=== PATIENT | male | born 1980 | race Caucasian/White ===

== ENCOUNTER 2017-01-13 12:35 | Emergency (ER) | payer OTHER ==
--- NOTE | 2017-01-13 12:46 | ED.PDOC ---
History of Present Illness - General Chief Complaint: General Stated Complaint: Slid out of chair at rehab facility, sent by EMS to be checked out Time Seen by Provider: 01/13/17 12:36 Source: patient, RN notes reviewed, Vital Signs reviewed, EMS notes reviewed, [facility] records Exam Limitations: clinical condition Additional Information: Patient has developmental delay and is on vent thus he is non-verbal. He does nod and shake his head in response to yes & no questions. - History of Present Illness Initial Comments: Per EMS - patient slid out of chair onto the floor at the [facility]. No obvious injuries. Sent here to be evaluated. Patient responds no to questions of pain or injury. Timing/Duration: momentarily Severity: mild Improving Factors: nothing Worsening Factors: nothing Associated Symptoms: denies symptoms Allergies/Adverse Reactions: Allergies NO KNOWN ALLERGY Allergy (Verified 01/13/17 12:48) Review of Systems - Review of Systems Constitutional: States: no symptoms reported EENTM: States: no symptoms reported Respiratory: States: no symptoms reported, other - On Vent - no recent change Cardiology: States: no symptoms reported Gastrointestinal/Abdominal: States: no symptoms reported Musculoskeletal: States: no symptoms reported Skin: States: no symptoms reported Neurological: States: see HPI Endocrine: States: no symptoms reported Family Medical History - Family History Grandparents Family History: Unknown Physical Exam - Physical Exam General Appearance: Comfortable, Frail, No apparent distress Neck: non-tender, supple Respiratory: chest non-tender, lungs clear, normal breath sounds, no respiratory distress, no accessory muscle use, other - Trach in place and on ventilator Cardiovascular/Chest: normal peripheral pulses, regular rate, rhythm, no edema, no gallop, no JVD, no murmur Peripheral Pulses: dorsalis pedis,right: 2+, dorsalis pedis,left: 2+ Gastrointestinal/Abdominal: normal bowel sounds, non tender, soft, no organomegaly, no pulsatile mass Back Exam: normal inspection, no CVA tenderness, no vertebral tenderness Extremity: non-tender, no pedal edema, no calf tenderness, other - No obvious injury, limited ROM of ext - chronic, no obvious injury or tenderness on exam Neurologic: other - Unchanged from baseline per EMS Skin Exam: normal color, warm/dry Lymphatic: no adenopathy Progress - Progress Progress: 01/13/17 13:33 No complaint of injury and no obvious signs of injury. Trunk, back, abd and extremity exam reveals no tenderness or injury. Good ROM in hips. Pelvis stable and nontender. Will send back to Vent facility. Departure - Departure Clinical Impression: Fall at [facility] Time of Disposition: 13:35 Disposition: Discharge to SNF Condition: Fair Departure Forms: ED Discharge - Pt. Copy, Patient Portal Self Enrollment Instructions: How to Prevent Falls Diet: resume usual diet Activity: increase activity as tolerated
[2017-01-13 14:20] VITALS: BP 132/88; TEMP 99; O2SAT 100
== END 2017-01-13 14:15 ==
LOC: ER 12:35
DX: Z04.3 Encounter for examination and observation following other accident (principal); Z99.11 Dependence on respirator [ventilator] status; W07.XXXA Fall from chair, initial encounter; Y92.129 Unspecified place in nursing home as the place of occurrence of the external cause